=== PATIENT | female | born 1945 | race Caucasian/White ===

== ENCOUNTER → 2018-02-05 12:28 | Outpatient (CLI) | payer MEDICARE, SELFPAY ==
--- NOTE | 2018-02-05 12:30 | DI.MRI.S_ITS ---
PROCEDURE: MR LUMBAR SPINE WO CON INDICATIONS: low back pain TECHNIQUE: Noncontrast sagittal T1 spin echo and T2 fast echo, sagittal STIR, axial T1 and T2 fast spin echo through the lumbar spine. In cases with scoliosis, additional coronal T2 fast spin echo may be performed. COMPARISON: None. FINDINGS: Image quality: Excellent. Alignment and Curvature: There is mild L1-L2 retrolisthesis. Bone Marrow: Mild reactive endplate changes noted just at the L1-L2, L3-L4, L4-L5 and L5-S1 discs. Anterior wedging of the L1 vertebral body compatible with compression fracture. L1 marrow space signal is normal indicating compression fracture is chronic. L1 compression fracture results in approximately 50% loss of normal vertebral body height. No acute vertebral body compression fractures. Spinal Cord: Conus medullaris terminates at the L1 level. Visualized cord demonstrates normal signal and size. Paraspinous Soft Tissues: No paravertebral masses. L1-L2: Loss of disc signal and height. Mild, diffuse disc bulge. No central stenosis. Mild bilateral neural foraminal narrowing. No neural impingement. Focal high intensity zone noted in the posterior annulus compatible with a fissure. L2-L3: Loss of disc signal. Mild, diffuse disc bulge. Mild narrowing of the central canal. Mild bilateral neural foraminal narrowing. No neural impingement. L3-L4: Loss of disc signal and height. Mild, diffuse disc bulge. Mild to moderate narrowing of the central canal. Moderate bilateral neural foraminal narrowing. No neural impingement. Focal high intensity zones noted in the annulus compatible with fissures. L4-L5: Loss of disc signal and height. Moderate, diffuse disc bulge. Mild bilateral facet hypertrophy. Mild to moderate narrowing of the central canal. Moderate to severe right and mild left neural foraminal narrowing with slight flattening deformity exiting right L4 nerve root. L5-S1: Loss of disc signal and slight loss of disc height. Minimal, diffuse disc bulge. Moderate right and mild left facet hypertrophy. No central stenosis. Severe right and mild left neural foraminal narrowing with slight flattening deformity exiting right L5 nerve root. Focal high intensity zones noted in the annulus compatible with fissures. IMPRESSION: 1. Chronic L1 compression fracture. 2. Multilevel degenerative disc disease. 3. Multilevel facet arthropathy. 4. Mild to moderate L3-L4 and L4-L5 central canal narrowing. Mild L2-L3 central canal narrowing. 5. Severe right and mild left L5-S1 neural foraminal narrowing. Moderate to severe right and mild left L4-L5 neural foraminal narrowing. Moderate bilateral L4 neural foraminal narrowing. Mild bilateral L1-L2 and L2-L3 neural foraminal narrowing. Dictated by: Dayanna Gallego MD, PhD on 02/05/2018 at 15:29 Approved by: Dayanna Gallego MD, PhD on 02/05/2018 at 15:36
== END ==
PROVIDERS: PCP Physician Assistant Medical; Visit Provider Physical Medicine & Rehabilitation
DX: M48.56XA Collapsed vertebra, not elsewhere classified, lumbar region, initial encounter for fracture (principal); M51.36 Other intervertebral disc degeneration, lumbar region; M54.5 Low back pain; M51.37 Other intervertebral disc degeneration, lumbosacral region; M47.816 Spondylosis without myelopathy or radiculopathy, lumbar region; M47.817 Spondylosis without myelopathy or radiculopathy, lumbosacral region; M48.061 Spinal stenosis, lumbar region without neurogenic claudication; M48.07 Spinal stenosis, lumbosacral region
CPT/HCPCS: 72148

== ENCOUNTER 2018-10-23 14:15 | Emergency (ER) | payer MEDICARE, SELFPAY ==
[2018-10-23 14:13] VITALS: BP 121/65; PULSE 71; RESP 18; TEMP 36.5; O2SAT 93
--- NOTE | 2018-10-23 14:21 | DI.RAD.S_ITS ---
PROCEDURE: XR CHEST 1V INDICATIONS: chest pain TECHNIQUE: One view of the chest was acquired. COMPARISON: None. FINDINGS: Surgical changes and devices: None. Lungs and pleura: Lungs are clear. No pleural effusions or pneumothorax. Mediastinum: Mediastinal contours appear normal. Heart size is normal. Bones and chest wall: No suspicious bony lesions. Overlying soft tissues appear unremarkable. IMPRESSION: No acute cardiopulmonary disease process. Dictated by: Dayanna Gallego MD, PhD on 10/23/2018 at 14:35 Approved by: Dayanna Gallego MD, PhD on 10/23/2018 at 14:36
[2018-10-23 14:46] LABS: Add Manual Diff / Slide Review NO; Basophils Absolute Auto 100 /uL (0-100); Basophils Percent Auto 0.5 % (0-2); Eosinophils Absolute Auto 100 /uL (0-450); Eosinophils Percent Auto 0.6 % (2-4); Hematocrit 38.2 % (36-46); Hemoglobin 12.7 g/dL (12.0-16.0); Lymphocytes Absolute Auto 2000 /uL (1100-4500); Lymphocytes Percent Auto 15.4 % (25-40); Mean Corpuscular HGB Conc 33.2 % (30-36); Mean Corpuscular Hemoglobin 31.5 PG (26-34); Monocytes Absolute Auto 1000 /uL (0-900); Monocytes Percent Auto 7.9 % (3-14); Neutrophils Absolute Auto 9700 /uL (1500-7000); Neutrophils Percent Auto 75.6 % (50-75); Platelet Count 226 X10^3/uL (150-400); Red Blood Cell Count 4.02 X10^6/uL (4.0-5.2); White Blood Cell Count 12.9 X10^3/uL (4.5-11.0)
--- NOTE | 2018-10-23 14:46 | DI.CT.S_ITS ---
PROCEDURE: CT HEAD/BRAIN WO CON INDICATIONS: confused, generalized weakness. found sleeping on sidewalk. TECHNIQUE: Noncontrast 4.5 mm thick angled axial sections acquired from the foramen magnum to the vertex, with coronal and sagittal reformats. For radiation dose reduction, the following was used: automated exposure control, adjustment of mA and/or kV according to patient size. COMPARISON: None. FINDINGS: Image quality: Excellent. CSF spaces: Basal cisterns are patent. No extra-axial fluid collections. The ventricles are symmetric in size and shape. Brain: No intracranial bleeds or masses. There is cerebral volume loss for age, with resultant ventricular and sulcal prominence. There are periventricular and deep white matter chronic small vessel ischemic changes. There is intracranial internal carotid artery atherosclerosis. Skull and face: Calvarium and visualized facial bones appear intact, without suspicious lesions. Sinuses: Visualized sinuses and mastoids are clear. IMPRESSION: 1. No acute intracranial abnormalities. 2. Cerebral volume loss and chronic microvascular ischemic changes. Dictated by: Enma Balbuena M.D. on 10/23/2018 at 15:24 Approved by: Enma Balbuena M.D. on 10/23/2018 at 15:26
--- NOTE | 2018-10-23 14:55 | PC.NURSE ---
No focal weakness. NIH 0. FAST negative Falls asleep easily but awakens to general stimulation.
[2018-10-23 14:56] VITALS: BP 116/74; PULSE 70; RESP 18
[2018-10-23 14:56] LABS: Prothrombin Time 11.3 SECONDS (10.1-12.7)
[2018-10-23 14:58] LABS: PTT Partial Thromboplastin Tim 27 SECONDS (26.4-36.2)
[2018-10-23 15:00] LABS: Alanine Aminotransferase 16 IU/L (9-52); Albumin 3.9 g/dL (3.5-5.0); Albumin Globulin Ratio 1.3 (1.0-2.8); Alkaline Phosphatase 75 U/L (38-126); Aspartate Aminotransferase 20 IU/L (14-36); Bilirubin Total 0.9 mg/dL (0.2-1.3); Blood Urea Nitrogen 29 mg/dL (7-17); Carbon Dioxide 24 mmol/L (22-32); Chloride 114 mmol/L (98-107); Creatine Kinase 152 U/L (30-135); Estimated Glomerular Filt Rate 54.7 mL/min (>60); Globulin 3.1 g/dL (1.7-4.1); Glucose 82 mg/dL (80-110); HEMOLYSIS < 15 (0-50); Lipase 119 U/L (23-300); Sodium 144 mmol/L (137-145)
[2018-10-23 15:01] LABS: Ethanol (ETOH) < 10 mg/dL
[2018-10-23] MEDS: SODIUM CHLORIDE 0.9% 1,000 ML 250 ML IV (15:02)
[2018-10-23 15:11] LABS: Troponin I < 0.012 ng/mL (0.01-0.034)
[2018-10-23 15:15] LABS: Creatine Kinase MB 1.59 ng/mL (<2.37)
[2018-10-23 16:33] VITALS: BP 108/67; PULSE 81; RESP 20; O2SAT 91
--- NOTE | 2018-10-23 17:11 | ED.WEAKNESS ---
HPI - Weakness General Chief complaint: Weakness Stated complaint: Weakness, confusion Time Seen by Provider: 10/23/18 15:02 Source: patient Mode of arrival: ambulatory Limitations: no limitations History of Present Illness HPI Narrative: Patient comes emergency department complaining of sleepiness. She denies any other symptoms along with this. No chest pain shortness breath. No abdominal pain, nausea, vomiting, or diarrhea. No dysuria or back pain. No cough or fever. No head injury. Patient states that she was off her medications for about a week and then restarted them a few days ago. Patient takes Flexeril, gabapentin, and lorazepam, all which she states she took last night. Patient states she may have taken more than she should have accidentally, but she is not sure. Patient states that other than feeling sleepy, she feels perfectly fine. Related Data Home Medications Medication Instructions Recorded Confirmed aspirin 81 mg PO DAILY 10/23/18 10/23/18 atorvastatin 10 mg PO BEDTIME 10/23/18 10/23/18 cholecalciferol (vitamin D3) 1,000 unit PO DAILY 10/23/18 10/23/18 [Vitamin D3] cyclobenzaprine 10 mg PO TID PRN 10/23/18 10/23/18 duloxetine 120 mg PO DAILY 10/23/18 10/23/18 gabapentin 800 mg PO BEDTIME 10/23/18 10/23/18 levothyroxine 88 mcg PO DAILY 10/23/18 10/23/18 magnesium 250 mg PO DAILY 10/23/18 10/23/18 prazosin [Minipress] 3 mg PO BEDTIME 10/23/18 10/23/18 ranitidine HCl 300 mg PO DAILY PRN 10/23/18 10/23/18 Previous Rx's Medication Instructions Recorded gabapentin 100 mg capsule 100 mg PO TID PRN #90 cap 12/20/17 lamotrigine 100 mg tablet 100 mg PO DAILY #90 tab 09/17/18 eszopiclone 3 mg tablet 3 mg PO BEDTIME #30 tab 09/28/18 lorazepam 1 mg tablet 1 mg PO BIDP PRN #60 tab 09/28/18 Allergies Allergy/AdvReac Type Severity Reaction Status Date / Time haloperidol [From HALDOL] Allergy Unknown Verified 04/05/18 14:52 penicillin V [From BEEPEN VK] Allergy Unknown Verified 04/05/18 14:52 Sulfa (Sulfonamide Allergy Unknown Verified 04/05/18 14:52 Antibiotics) [SULFA (SULFONAMIDE ANTIBIOTICS)] diphenhydramine AdvReac Unknown Verified 04/05/18 14:52 [From BENADRYL] Review of Systems Constitutional Denies chills, Denies fever(s), Denies lethargy and Denies weakness Eyes Denies change in vision, Denies eye discharge, Denies irritation and Denies loss of vision ENT Ears, Nose, Mouth, and Throat: Denies change in voice, Denies neck pain and Denies sore throat Cardiovascular Denies chest pain, Denies irregular heart rhythm, Denies lightheadedness, Denies palpitations, Denies dyspnea, Denies dyspnea on exertion and Denies orthopnea Respiratory Denies cough, Denies dyspnea, Denies dyspnea on exertion and Denies wheezing Gastrointestinal Gastrointestinal: Denies abdominal pain, Denies change in bowel habits, Denies diarrhea, Denies nausea and Denies vomiting Genitourinary Denies hematuria, Denies flank pain, Denies urinary incontinence and Denies urinary urgency Musculoskeletal Denies neck pain Integumentary/Breasts Denies pruritus, Denies erythema, Denies rash and Denies wounds Neurologic Denies confusion, Denies loss of vision and Denies weakness Comments: Drowsiness Psychiatric Denies anxiety, Denies confusion, Denies depression, Denies homicidal ideation and Denies suicidal ideation Endocrine Denies palpitations Hematologic/Lymphatic Denies easy bruising Allergic/Immunologic Denies wheezing FOR[facility]LY [facility] Medical History DDD (degenerative disc disease), lumbar (Chronic) Herniated nucleus pulposus, L3-4 (Chronic) Major depressive disorder, recurrent episode, in partial remission with mood-congruent psychotic features (Acute) Alcohol use disorder, severe, in sustained remission (Acute) H/O alcohol abuse (Acute) History of cocaine abuse (Acute) Chronic post-traumatic stress disorder (PTSD) (Acute) Surgical History No pertinent past surgical history (Acute) Social History Smoking Status: Current every day smoker Social History Smoking Status: Current every day smoker Exam Initial Vital Signs Initial Vital Signs: Vital Signs Temperature 97.7 F 10/23/18 14:13 Pulse Rate 71 10/23/18 14:13 Respiratory Rate 18 10/23/18 14:13 Blood Pressure 121/65 10/23/18 14:13 Pulse Oximetry 93 10/23/18 14:13 Const General: cooperative and well developed Nutritional Appearance: well nourished Orientation: alert, awake, oriented x3 and not confused Other: The patient is sleeping when I enter the room, but easily arousable, and alert when aroused. HENMI Head: normocephalic and atraumatic Ears: external ears normal and TM's normal bilaterally Nose: external nose normal and No nasal discharge Face and sinus: sinuses nontender, face symmetric, no sinus tenderness and No dry mucous membranes Mouth: oral mucosae normal and moist mucous membranes Teeth and gingiva: dentition normal Throat: tonsils normal and uvula midline Eyes General: appearance normal, both eyes and all related structures Eyelids: eyelids normal Conjunctivae: conjunctivae normal Sclera: sclerae normal Pupils: PERRL EOM: EOM intact bilaterally Neck Neck: normal visual inspection, trachea midline, No lymphadenopathy, No midline deformity and No JVD Lymphatic: No lymphedema Chest Chest: normal inspection of the chest Resp Effort & Inspection: normal respiratory effort, able to speak in complete sentences, no respiratory distress and no use of accessory muscles Auscultation: clear to auscultation bilaterally, no rales, no rhonchi and no wheezes Cardio Rate: regular rate Rhythm: regular rhythm Heart Sounds: no click, no gallops, no murmurs and no rubs Pulses: normal peripheral pulses GI Inspection: non-distended Palpation: soft, no hepatosplenomegaly, No guarding, No pulsatile mass and No tender Auscultation: normal bowel sounds Back/Spine/Pelvis Back: No CVA tenderness Cervical Spine: cervical ROM normal and No pain with cervical ROM Thoracic/Lumbar Spine: thoracic and lumbar spine normal to inspection Skin General: no rashes or lesions noted, No jaundice and No petechiae Neuro General: alert (When aroused), awake (When aroused), oriented x3, gait normal, no focal motor deficits and CN's II-XI intact bilaterally Speech: speech normal Gait: normal gait (Patient ambulates on her own on a narrow based gait without difficulty.) Extrem General: full ROM, no clubbing, cyanosis or edema, no pedal edema and no calf tenderness Psych Appearance: well kempt Mental Status: mental status grossly normal Attitude: cooperative Thought Content: normal and suicidality Judgment: judgment good Course Course Narrative: Patient looked good overall. She was worked up with labs, which were unremarkable. I felt the patient was most likely drowsy, because she had taken her Flexeril, Ativan, and gabapentin illness same time. I discussed with the patient that she will need to ease back onto these medications, or talk to her primary care physician about dosing. The patient is completely lucid and coherent when aroused, and I have advised her at this point that she should go home and sleep off the drowsiness. Her sats are good here, and her exam is unremarkable. We have discussed the usual indications for return. Orders Ordered: Discontinued Medications Sodium Chloride (Normal Saline 0.9%) 1,000 mls @ 1,000 mls/hr IV BOLUS ONE Stop: 10/23/18 15:25 Last Infusion: 10/23/18 17:57 Dose: 0 mls/hr Admin: 10/23/18 15:02 Dose: 250 mls/hr Vital Signs - 8 hr 10/23/18 14:13 10/23/18 14:56 10/23/18 16:33 Temperature 97.7 F Pulse Rate 71 70 81 Respiratory Rate 18 18 20 Blood Pressure 121/65 Blood Pressure [Left Arm] 116/74 108/67 Pulse Oximetry 93 91 MDM - Weakness Medical Records Attestation: I reviewed the patient's medical records. Lab Data Attestation: I reviewed the patient's lab results. Result diagrams: 10/23/18 14:35 10/23/18 14:35 Lab Results 10/23/18 10/23/18 10/23/18 Range/Units 14:35 14:35 14:35 WBC 12.9 H (4.5-11.0) X10^3/uL RBC 4.02 (4.0-5.2) X10^6/uL Hgb 12.7 (12.0-16.0) g/dL Hct 38.2 (36-46) % MCV 95.0 (80-100) fL MCH 31.5 (26-34) PG MCHC 33.2 (30-36) % RDW 13.0 (11.6-14.8) % Plt Count 226 (150-400) X10^3/uL Neut % (Auto) 75.6 H (50-75) % Lymph % (Auto) 15.4 L (25-40) % [place] % (Auto) 7.9 (3-14) % Eos % (Auto) 0.6 L (2-4) % Baso % (Auto) 0.5 (0-2) % Neut # (Auto) 9700 H (0786-5977) /uL Lymph # (Auto) 2000 (4897-7239) /uL [place] # (Auto) 1000 H (0-900) /uL Eos # (Auto) 100 (0-450) /uL Baso # (Auto) 100 (0-100) /uL PT 11.3 (10.1-12.7) SECONDS INR 1.0 (0.9-1.3) APTT 27 (26.4-36.2) SECONDS Sodium 144 (137-145) mmol/L Potassium 4.0 (3.4-5.1) mmol/L Chloride 114 H (98-107) mmol/L Carbon Dioxide 24 (22-32) mmol/L BUN 29 H (7-17) mg/dL Creatinine 1.00 (0.52-1.04) mg/dL Estimated GFR 54.7 L (>60) mL/min BUN/Creatinine Ratio 29.0 H (6-22) Glucose 82 (80-110) mg/dL Calcium 9.0 (8.4-10.2) mg/dL Total Bilirubin 0.9 (0.2-1.3) mg/dL AST 20 (14-36) IU/L ALT 16 (9-52) IU/L Alkaline Phosphatase 75 (38-126) U/L Total Creatine Kinase 152 H (30-135) U/L CK-MB (CK-2) 1.59 (<2.37) ng/mL CK-MB (CK-2) Rel Index 1.0 L (1.5-5.0) % Troponin I < 0.012 (0.01-0.034) ng/mL Total Protein 7.0 (6.3-8.2) g/dL Albumin 3.9 (3.5-5.0) g/dL Globulin 3.1 (1.7-4.1) g/dL Albumin/Globulin Ratio 1.3 (1.0-2.8) Lipase 119 (23-300) U/L Urine RBC (0-5/HPF) Urine WBC (0-5/HPF) Ur Squamous Epith Cells (0-5/HPF) Urine Bacteria (None) Hyaline Casts (None) Urine Mucus (Negative) Ur Culture Indicated? Urine Opiates Screen (Negative) Ur Oxycodone Screen (Negative) Urine Methadone Screen (Negative) Ur Barbiturates Screen (Negative) Lamotrigine (4.0-18.0) mcg/mL U Tricyclic Antidepress (Negative) Ur Phencyclidine Scrn (Negative) Ur Amphetamines Screen (Negative) U Methamphetamines Scrn (Negative) Ur MDMA Scrn (Ecstasy) (Negative) U Benzodiazepines Scrn (Negative) Urine Cocaine Screen (Negative) U Marijuana (THC) Screen (Negative) Ethyl Alcohol mg/dL 10/23/18 10/23/18 10/23/18 Range/Units 14:35 14:35 17:35 WBC (4.5-11.0) X10^3/uL RBC (4.0-5.2) X10^6/uL Hgb (12.0-16.0) g/dL Hct (36-46) % MCV (80-100) fL MCH (26-34) PG MCHC (30-36) % RDW (11.6-14.8) % Plt Count (150-400) X10^3/uL Neut % (Auto) (50-75) % Lymph % (Auto) (25-40) % [place] % (Auto) (3-14) % Eos % (Auto) (2-4) % Baso % (Auto) (0-2) % Neut # (Auto) (6680-6865) /uL Lymph # (Auto) (3756-6133) /uL [place] # (Auto) (0-900) /uL Eos # (Auto) (0-450) /uL Baso # (Auto) (0-100) /uL PT (10.1-12.7) SECONDS INR (0.9-1.3) APTT (26.4-36.2) SECONDS Sodium (137-145) mmol/L Potassium (3.4-5.1) mmol/L Chloride (98-107) mmol/L Carbon Dioxide (22-32) mmol/L BUN (7-17) mg/dL Creatinine (0.52-1.04) mg/dL Estimated GFR (>60) mL/min BUN/Creatinine Ratio (6-22) Glucose (80-110) mg/dL Calcium (8.4-10.2) mg/dL Total Bilirubin (0.2-1.3) mg/dL AST (14-36) IU/L ALT (9-52) IU/L Alkaline Phosphatase (38-126) U/L Total Creatine Kinase (30-135) U/L CK-MB (CK-2) (<2.37) ng/mL CK-MB (CK-2) Rel Index (1.5-5.0) % Troponin I (0.01-0.034) ng/mL Total Protein (6.3-8.2) g/dL Albumin (3.5-5.0) g/dL Globulin (1.7-4.1) g/dL Albumin/Globulin Ratio (1.0-2.8) Lipase (23-300) U/L Urine RBC (0-5/HPF) Urine WBC (0-5/HPF) Ur Squamous Epith Cells (0-5/HPF) Urine Bacteria (None) Hyaline Casts (None) Urine Mucus (Negative) Ur Culture Indicated? Urine Opiates Screen Negative (Negative) Ur Oxycodone Screen Negative (Negative) Urine Methadone Screen Negative (Negative) Ur Barbiturates Screen Negative (Negative) Lamotrigine 1.2 L (4.0-18.0) mcg/mL U Tricyclic Antidepress Positive H (Negative) Ur Phencyclidine Scrn Negative (Negative) Ur Amphetamines Screen Negative (Negative) U Methamphetamines Scrn Positive H (Negative) Ur MDMA Scrn (Ecstasy) Negative (Negative) U Benzodiazepines Scrn Positive H (Negative) Urine Cocaine Screen Negative (Negative) U Marijuana (THC) Screen Negative (Negative) Ethyl Alcohol < 10 mg/dL 10/23/18 Range/Units 17:36 WBC (4.5-11.0) X10^3/uL RBC (4.0-5.2) X10^6/uL Hgb (12.0-16.0) g/dL Hct (36-46) % MCV (80-100) fL MCH (26-34) PG MCHC (30-36) % RDW (11.6-14.8) % Plt Count (150-400) X10^3/uL Neut % (Auto) (50-75) % Lymph % (Auto) (25-40) % [place] % (Auto) (3-14) % Eos % (Auto) (2-4) % Baso % (Auto) (0-2) % Neut # (Auto) (8426-3778) /uL Lymph # (Auto) (3991-3002) /uL [place] # (Auto) (0-900) /uL Eos # (Auto) (0-450) /uL Baso # (Auto) (0-100) /uL PT (10.1-12.7) SECONDS INR (0.9-1.3) APTT (26.4-36.2) SECONDS Sodium (137-145) mmol/L Potassium (3.4-5.1) mmol/L Chloride (98-107) mmol/L Carbon Dioxide (22-32) mmol/L BUN (7-17) mg/dL Creatinine (0.52-1.04) mg/dL Estimated GFR (>60) mL/min BUN/Creatinine Ratio (6-22) Glucose (80-110) mg/dL Calcium (8.4-10.2) mg/dL Total Bilirubin (0.2-1.3) mg/dL AST (14-36) IU/L ALT (9-52) IU/L Alkaline Phosphatase (38-126) U/L Total Creatine Kinase (30-135) U/L CK-MB (CK-2) (<2.37) ng/mL CK-MB (CK-2) Rel Index (1.5-5.0) % Troponin I (0.01-0.034) ng/mL Total Protein (6.3-8.2) g/dL Albumin (3.5-5.0) g/dL Globulin (1.7-4.1) g/dL Albumin/Globulin Ratio (1.0-2.8) Lipase (23-300) U/L Urine RBC None seen (0-5/HPF) Urine WBC 0-1/hpf (0-5/HPF) Ur Squamous Epith Cells 0-1 /hpf (0-5/HPF) Urine Bacteria None seen (None) Hyaline Casts 1-5/lpf (None) Urine Mucus 1+ H (Negative) Ur Culture Indicated? Cult not indicated Urine Opiates Screen (Negative) Ur Oxycodone Screen (Negative) Urine Methadone Screen (Negative) Ur Barbiturates Screen (Negative) Lamotrigine (4.0-18.0) mcg/mL U Tricyclic Antidepress (Negative) Ur Phencyclidine Scrn (Negative) Ur Amphetamines Screen (Negative) U Methamphetamines Scrn (Negative) Ur MDMA Scrn (Ecstasy) (Negative) U Benzodiazepines Scrn (Negative) Urine Cocaine Screen (Negative) U Marijuana (THC) Screen (Negative) Ethyl Alcohol mg/dL Urine Dip Bedside Urine Glucose Negative Bedside Urine Bilirubin - Negative Bedside Urine Ketone - Negative Urine Specific [place] 1.025 Bedside Urine Occult Blood +/- Bedside Urine pH 6.0 Bedside Urine Protein +/- 15 Bedside Urine Urobilinogen - Negative Bedside Urine Nitrite - Negative Bedside Urine Leukocytes - Negative Esterase Discharge Plan Departure Patient Disposition: Home Clinical Impression: Drowsiness Adverse effects of medication Qualifiers: Encounter type: initial encounter Qualified Code(s): T50.905A - Adverse effect of unspecified drugs, medicaments and biological substances, initial encounter Discharge Date/Time: 10/23/18 18:26 Interventions: ED Discharge Assessment Last Done: 10/23/18 18:25 Instructions: Dos and Don'ts for Prescription Medications, DI for Safely Taking and Storing Medications -- Adults Activity Restrictions/Additional Instructions: Your labs all looked great. There is no evidence of a serious or emergent condition causing your symptoms. If your liked her medications continue to make you drowsy, please follow up with your primary doctor to discuss whether these are still inappropriate combination for you to take. Prescriptions: No Action eszopiclone [Lunesta] 3 mg tablet 3 mg PO BEDTIME Qty: 30 RF: 1 lorazepam [Ativan] 1 mg tablet 1 mg PO BIDP PRN (Reason: anxiety) Qty: 60 RF: 2 gabapentin 100 mg capsule 100 mg PO TID PRN (Reason: sleep) Qty: 90 RF: 2 lamotrigine 100 mg tablet 100 mg PO DAILY Qty: 90 RF: 1 cyclobenzaprine 10 mg Tablet 10 mg PO TID PRN (Reason: Muscle Spasm) RF: 0 atorvastatin 10 mg Tablet 10 mg PO BEDTIME RF: 0 ranitidine HCl 300 mg Tablet 300 mg PO DAILY PRN (Reason: Indigestion) RF: 0 aspirin 81 mg Tablet,Delayed Release (Dr/Ec) 81 mg PO DAILY RF: 0 levothyroxine 88 mcg Tablet 88 mcg PO DAILY RF: 0 magnesium 250 mg Tablet 250 mg PO DAILY RF: 0 cholecalciferol (vitamin D3) [Vitamin D3] 1,000 unit Capsule 1,000 unit PO DAILY RF: 0 prazosin [Minipress] 1 mg capsule 3 mg PO BEDTIME RF: 0 gabapentin 400 mg capsule 800 mg PO BEDTIME RF: 0 duloxetine 60 mg capsule,delayed release(DR/EC) 120 mg PO DAILY RF: 0 Referrals: Carolina Hunter PA-C [Primary Care Provider] -
--- NOTE | 2018-10-23 17:16 | ED_ITS ---
HPI - Weakness General Chief complaint: Weakness Stated complaint: Weakness, confusion Time Seen by Provider: 10/23/18 15:02 Source: patient Mode of arrival: ambulatory Limitations: no limitations History of Present Illness HPI Narrative: Patient comes emergency department complaining of sleepiness. She denies any other symptoms along with this. No chest pain shortness breath. No abdominal pain, nausea, vomiting, or diarrhea. No dysuria or back pain. No cough or fever. No head injury. Patient states that she was off her medications for about a week and then restarted them a few days ago. Patient takes Flexeril, gabapentin, and lorazepam, all which she states she took last night. Patient states she may have taken more than she should have accidentally, but she is not sure. Patient states that other than feeling sleepy, she feels perfectly fine. Related Data Home Medications Medication Instructions Recorded Confirmed aspirin 81 mg PO DAILY 10/23/18 10/23/18 atorvastatin 10 mg PO BEDTIME 10/23/18 10/23/18 cholecalciferol (vitamin D3) 1,000 unit PO DAILY 10/23/18 10/23/18 [Vitamin D3] cyclobenzaprine 10 mg PO TID PRN 10/23/18 10/23/18 duloxetine 120 mg PO DAILY 10/23/18 10/23/18 gabapentin 800 mg PO BEDTIME 10/23/18 10/23/18 levothyroxine 88 mcg PO DAILY 10/23/18 10/23/18 magnesium 250 mg PO DAILY 10/23/18 10/23/18 prazosin [Minipress] 3 mg PO BEDTIME 10/23/18 10/23/18 ranitidine HCl 300 mg PO DAILY PRN 10/23/18 10/23/18 Previous Rx's Medication Instructions Recorded gabapentin 100 mg capsule 100 mg PO TID PRN #90 cap 12/20/17 lamotrigine 100 mg tablet 100 mg PO DAILY #90 tab 09/17/18 eszopiclone 3 mg tablet 3 mg PO BEDTIME #30 tab 09/28/18 lorazepam 1 mg tablet 1 mg PO BIDP PRN #60 tab 09/28/18 Allergies Allergy/AdvReac Type Severity Reaction Status Date / Time haloperidol [From HALDOL] Allergy Unknown Verified 04/05/18 14:52 penicillin V [From BEEPEN VK] Allergy Unknown Verified 04/05/18 14:52 Sulfa (Sulfonamide Allergy Unknown Verified 04/05/18 14:52 Antibiotics) [SULFA (SULFONAMIDE ANTIBIOTICS)] diphenhydramine AdvReac Unknown Verified 04/05/18 14:52 [From BENADRYL] Review of Systems Constitutional Denies chills, Denies fever(s), Denies lethargy and Denies weakness Eyes Denies change in vision, Denies eye discharge, Denies irritation and Denies loss of vision ENT Ears, Nose, Mouth, and Throat: Denies change in voice, Denies neck pain and Denies sore throat Cardiovascular Denies chest pain, Denies irregular heart rhythm, Denies lightheadedness, Denies palpitations, Denies dyspnea, Denies dyspnea on exertion and Denies orthopnea Respiratory Denies cough, Denies dyspnea, Denies dyspnea on exertion and Denies wheezing Gastrointestinal Gastrointestinal: Denies abdominal pain, Denies change in bowel habits, Denies diarrhea, Denies nausea and Denies vomiting Genitourinary Denies hematuria, Denies flank pain, Denies urinary incontinence and Denies urinary urgency Musculoskeletal Denies neck pain Integumentary/Breasts Denies pruritus, Denies erythema, Denies rash and Denies wounds Neurologic Denies confusion, Denies loss of vision and Denies weakness Comments: Drowsiness Psychiatric Denies anxiety, Denies confusion, Denies depression, Denies homicidal ideation and Denies suicidal ideation Endocrine Denies palpitations Hematologic/Lymphatic Denies easy bruising Allergic/Immunologic Denies wheezing FORMERLY [facility] Medical History DDD (degenerative disc disease), lumbar (Chronic) Herniated nucleus pulposus, L3-4 (Chronic) Major depressive disorder, recurrent episode, 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 (Acute) Alcohol use disorder, severe, in sustained remission (Acute) H/O alcohol abuse (Acute) History of cocaine abuse (Acute) Chronic post-traumatic stress disorder (PTSD) (Acute) Surgical History No pertinent past surgical history (Acute) Social History Smoking Status: Current every day smoker Social History Smoking Status: Current every day smoker Exam Initial Vital Signs Initial Vital Signs: Vital Signs Temperature 97.7 F 10/23/18 14:13 Pulse Rate 71 10/23/18 14:13 Respiratory Rate 18 10/23/18 14:13 Blood Pressure 121/65 10/23/18 14:13 Pulse Oximetry 93 10/23/18 14:13 Const General: cooperative and well developed Nutritional Appearance: well nourished Orientation: alert, awake, oriented x3 and not confused Other: The patient is sleeping when I enter the room, but easily arousable, and alert when aroused. HENMS Head: normocephalic and atraumatic Ears: external ears normal and TM's normal bilaterally Nose: external nose normal and No nasal discharge Face and sinus: sinuses nontender, face symmetric, no sinus tenderness and No dry mucous membranes Mouth: oral mucosae normal and moist mucous membranes Teeth and gingiva: dentition normal Throat: tonsils normal and uvula midline Eyes General: appearance normal, both eyes and all related structures Eyelids: eyelids normal Conjunctivae: conjunctivae normal Sclera: sclerae normal Pupils: PERRL EOM: EOM intact bilaterally Neck Neck: normal visual inspection, trachea midline, No lymphadenopathy, No midline deformity and No JVD Lymphatic: No lymphedema Chest Chest: normal inspection of the chest Resp Effort & Inspection: normal respiratory effort, able to speak in complete sentences, no respiratory distress and no use of accessory muscles Auscultation: clear to auscultation bilaterally, no rales, no rhonchi and no wheezes Cardio Rate: regular rate Rhythm: regular rhythm Heart Sounds: no click, no gallops, no murmurs and no rubs Pulses: normal peripheral pulses GI Inspection: non-distended Palpation: soft, no hepatosplenomegaly, No guarding, No pulsatile mass and No tender Auscultation: normal bowel sounds Back/Spine/Pelvis Back: No CVA tenderness Cervical Spine: cervical ROM normal and No pain with cervical ROM Thoracic/Lumbar Spine: thoracic and lumbar spine normal to inspection Skin General: no rashes or lesions noted, No jaundice and No petechiae Neuro General: alert (When aroused), awake (When aroused), oriented x3, gait normal, no focal motor deficits and CN's II-XI intact bilaterally Speech: speech normal Gait: normal gait (Patient ambulates on her own on a narrow based gait without difficulty.) Extrem General: full ROM, no clubbing, cyanosis or edema, no pedal edema and no calf tenderness Psych Appearance: well kempt Mental Status: mental status grossly normal Attitude: cooperative Thought Content: normal and suicidality Judgment: judgment good Course Course Narrative: Patient looked good overall. She was worked up with labs, which were unremarkable. I felt the patient was most likely drowsy, because she had taken her Flexeril, Ativan, and gabapentin illness same time. I discussed with the patient that she will need to ease back onto these medications, or talk to her primary care physician about dosing. The patient is completely lucid and coherent when aroused, and I have advised her at this point that she should go home and sleep off the drowsiness. Her sats are good here, and her exam is unremarkable. We have discussed the usual indications for return. Orders Ordered: Discontinued Medications Sodium Chloride (Normal Saline 0.9%) 1,000 mls @ 1,000 mls/hr IV BOLUS ONE Stop: 10/23/18 15:25 Last Infusion: 10/23/18 17:57 Dose: 0 mls/hr Admin: 10/23/18 15:02 Dose: 250 mls/hr Vital Signs - 8 hr 10/23/18 14:13 10/23/18 14:56 10/23/18 16:33 Temperature 97.7 F Pulse Rate 71 70 81 Respiratory Rate 18 18 20 Blood Pressure 121/65 Blood Pressure [Left Arm] 116/74 108/67 Pulse Oximetry 93 91 MDM - Weakness Medical Records Attestation: I reviewed the patient's medical records. Lab Data Attestation: I reviewed the patient's lab results. Result diagrams: 10/23/18 14:35 10/23/18 14:35 Lab Results 10/23/18 10/23/18 10/23/18 Range/Units 14:35 14:35 14:35 WBC 12.9 H (4.5-11.0) X10^3/uL RBC 4.02 (4.0-5.2) X10^6/uL Hgb 12.7 (12.0-16.0) g/dL Hct 38.2 (36-46) % MCV 95.0 (80-100) fL MCH 31.5 (26-34) PG MCHC 33.2 (30-36) % RDW 13.0 (11.6-14.8) % Plt Count 226 (150-400) X10^3/uL Neut % (Auto) 75.6 H (50-75) % Lymph % (Auto) 15.4 L (25-40) % Kay % (Auto) 7.9 (3-14) % Eos % (Auto) 0.6 L (2-4) % Baso % (Auto) 0.5 (0-2) % Neut # (Auto) 9700 H (7584-5581) /uL Lymph # (Auto) 2000 (3879-7131) /uL Kay # (Auto) 1000 H (0-900) /uL Eos # (Auto) 100 (0-450) /uL Baso # (Auto) 100 (0-100) /uL PT 11.3 (10.1-12.7) SECONDS INR 1.0 (0.9-1.3) APTT 27 (26.4-36.2) SECONDS Sodium 144 (137-145) mmol/L Potassium 4.0 (3.4-5.1) mmol/L Chloride 114 H (98-107) mmol/L Carbon Dioxide 24 (22-32) mmol/L BUN 29 H (7-17) mg/dL Creatinine 1.00 (0.52-1.04) mg/dL Estimated GFR 54.7 L (>60) mL/min BUN/Creatinine Ratio 29.0 H (6-22) Glucose 82 (80-110) mg/dL Calcium 9.0 (8.4-10.2) mg/dL Total Bilirubin 0.9 (0.2-1.3) mg/dL AST 20 (14-36) IU/L ALT 16 (9-52) IU/L Alkaline Phosphatase 75 (38-126) U/L Total Creatine Kinase 152 H (30-135) U/L CK-MB (CK-2) 1.59 (<2.37) ng/mL CK-MB (CK-2) Rel Index 1.0 L (1.5-5.0) % Troponin I < 0.012 (0.01-0.034) ng/mL Total Protein 7.0 (6.3-8.2) g/dL Albumin 3.9 (3.5-5.0) g/dL Globulin 3.1 (1.7-4.1) g/dL Albumin/Globulin Ratio 1.3 (1.0-2.8) Lipase 119 (23-300) U/L Urine RBC (0-5/HPF) Urine WBC (0-5/HPF) Ur Squamous Epith Cells (0-5/HPF) Urine Bacteria (None) Hyaline Casts (None) Urine Mucus (Negative) Ur Culture Indicated? Urine Opiates Screen (Negative) Ur Oxycodone Screen (Negative) Urine Methadone Screen (Negative) Ur Barbiturates Screen (Negative) Lamotrigine (4.0-18.0) mcg/mL U Tricyclic Antidepress (Negative) Ur Phencyclidine Scrn (Negative) Ur Amphetamines Screen (Negative) U Methamphetamines Scrn (Negative) Ur MDMA Scrn (Ecstasy) (Negative) U Benzodiazepines Scrn (Negative) Urine Cocaine Screen (Negative) U Marijuana (THC) Screen (Negative) Ethyl Alcohol mg/dL 10/23/18 10/23/18 10/23/18 Range/Units 14:35 14:35 17:35 WBC (4.5-11.0) X10^3/uL RBC (4.0-5.2) X10^6/uL Hgb (12.0-16.0) g/dL Hct (36-46) % MCV (80-100) fL MCH (26-34) PG MCHC (30-36) % RDW (11.6-14.8) % Plt Count (150-400) X10^3/uL Neut % (Auto) (50-75) % Lymph % (Auto) (25-40) % Kay % (Auto) (3-14) % Eos % (Auto) (2-4) % Baso % (Auto) (0-2) % Neut # (Auto) (7406-4324) /uL Lymph # (Auto) (4401-1132) /uL Kay # (Auto) (0-900) /uL Eos # (Auto) (0-450) /uL Baso # (Auto) (0-100) /uL PT (10.1-12.7) SECONDS INR (0.9-1.3) APTT (26.4-36.2) SECONDS Sodium (137-145) mmol/L Potassium (3.4-5.1) mmol/L Chloride (98-107) mmol/L Carbon Dioxide (22-32) mmol/L BUN (7-17) mg/dL Creatinine (0.52-1.04) mg/dL Estimated GFR (>60) mL/min BUN/Creatinine Ratio (6-22) Glucose (80-110) mg/dL Calcium (8.4-10.2) mg/dL Total Bilirubin (0.2-1.3) mg/dL AST (14-36) IU/L ALT (9-52) IU/L Alkaline Phosphatase (38-126) U/L Total Creatine Kinase (30-135) U/L CK-MB (CK-2) (<2.37) ng/mL CK-MB (CK-2) Rel Index (1.5-5.0) % Troponin I (0.01-0.034) ng/mL Total Protein (6.3-8.2) g/dL Albumin (3.5-5.0) g/dL Globulin (1.7-4.1) g/dL Albumin/Globulin Ratio (1.0-2.8) Lipase (23-300) U/L Urine RBC (0-5/HPF) Urine WBC (0-5/HPF) Ur Squamous Epith Cells (0-5/HPF) Urine Bacteria (None) Hyaline Casts (None) Urine Mucus (Negative) Ur Culture Indicated? Urine Opiates Screen Negative (Negative) Ur Oxycodone Screen Negative (Negative) Urine Methadone Screen Negative (Negative) Ur Barbiturates Screen Negative (Negative) Lamotrigine 1.2 L (4.0-18.0) mcg/mL U Tricyclic Antidepress Positive H (Negative) Ur Phencyclidine Scrn Negative (Negative) Ur Amphetamines Screen Negative (Negative) U Methamphetamines Scrn Positive H (Negative) Ur MDMA Scrn (Ecstasy) Negative (Negative) U Benzodiazepines Scrn Positive H (Negative) Urine Cocaine Screen Negative (Negative) U Marijuana (THC) Screen Negative (Negative) Ethyl Alcohol < 10 mg/dL 10/23/18 Range/Units 17:36 WBC (4.5-11.0) X10^3/uL RBC (4.0-5.2) X10^6/uL Hgb (12.0-16.0) g/dL Hct (36-46) % MCV (80-100) fL MCH (26-34) PG MCHC (30-36) % RDW (11.6-14.8) % Plt Count (150-400) X10^3/uL Neut % (Auto) (50-75) % Lymph % (Auto) (25-40) % Kay % (Auto) (3-14) % Eos % (Auto) (2-4) % Baso % (Auto) (0-2) % Neut # (Auto) (2318-7663) /uL Lymph # (Auto) (1170-6204) /uL Kay # (Auto) (0-900) /uL Eos # (Auto) (0-450) /uL Baso # (Auto) (0-100) /uL PT (10.1-12.7) SECONDS INR (0.9-1.3) APTT (26.4-36.2) SECONDS Sodium (137-145) mmol/L Potassium (3.4-5.1) mmol/L Chloride (98-107) mmol/L Carbon Dioxide (22-32) mmol/L BUN (7-17) mg/dL Creatinine (0.52-1.04) mg/dL Estimated GFR (>60) mL/min BUN/Creatinine Ratio (6-22) Glucose (80-110) mg/dL Calcium (8.4-10.2) mg/dL Total Bilirubin (0.2-1.3) mg/dL AST (14-36) IU/L ALT (9-52) IU/L Alkaline Phosphatase (38-126) U/L Total Creatine Kinase (30-135) U/L CK-MB (CK-2) (<2.37) ng/mL CK-MB (CK-2) Rel Index (1.5-5.0) % Troponin I (0.01-0.034) ng/mL Total Protein (6.3-8.2) g/dL Albumin (3.5-5.0) g/dL Globulin (1.7-4.1) g/dL Albumin/Globulin Ratio (1.0-2.8) Lipase (23-300) U/L Urine RBC None seen (0-5/HPF) Urine WBC 0-1/hpf (0-5/HPF) Ur Squamous Epith Cells 0-1 /hpf (0-5/HPF) Urine Bacteria None seen (None) Hyaline Casts 1-5/lpf (None) Urine Mucus 1+ H (Negative) Ur Culture Indicated? Cult not indicated Urine Opiates Screen (Negative) Ur Oxycodone Screen (Negative) Urine Methadone Screen (Negative) Ur Barbiturates Screen (Negative) Lamotrigine (4.0-18.0) mcg/mL U Tricyclic Antidepress (Negative) Ur Phencyclidine Scrn (Negative) Ur Amphetamines Screen (Negative) U Methamphetamines Scrn (Negative) Ur MDMA Scrn (Ecstasy) (Negative) U Benzodiazepines Scrn (Negative) Urine Cocaine Screen (Negative) U Marijuana (THC) Screen (Negative) Ethyl Alcohol mg/dL Urine Dip Bedside Urine Glucose Negative Bedside Urine Bilirubin - Negative Bedside Urine Ketone - Negative Urine Specific [place] 1.025 Bedside Urine Occult Blood +/- Bedside Urine pH 6.0 Bedside Urine Protein +/- 15 Bedside Urine Urobilinogen - Negative Bedside Urine Nitrite - Negative Bedside Urine Leukocytes - Negative Esterase Discharge Plan Departure Patient Disposition: Home Clinical Impression: Drowsiness Adverse effects of medication Qualifiers: Encounter type: initial encounter Qualified Code(s): T50.905A - Adverse effect of unspecified drugs, medicaments and biological substances, initial encounter Discharge Date/Time: 10/23/18 18:26 Interventions: ED Discharge Assessment Last Done: 10/23/18 18:25 Instructions: Dos and Don'ts for Prescription Medications, DI for Safely Taking and Storing Medications -- Adults Activity Restrictions/Additional Instructions: Your labs all looked great. There is no evidence of a serious or emergent condition causing your symptoms. If your liked her medications continue to make you drowsy, please follow up with your primary doctor to discuss whether these are still inappropriate combination for you to take. Prescriptions: No Action eszopiclone [Lunesta] 3 mg tablet 3 mg PO BEDTIME Qty: 30 RF: 1 lorazepam [Ativan] 1 mg tablet 1 mg PO BIDP PRN (Reason: anxiety) Qty: 60 RF: 2 gabapentin 100 mg capsule 100 mg PO TID PRN (Reason: sleep) Qty: 90 RF: 2 lamotrigine 100 mg tablet 100 mg PO DAILY Qty: 90 RF: 1 cyclobenzaprine 10 mg Tablet 10 mg PO TID PRN (Reason: Muscle Spasm) RF: 0 atorvastatin 10 mg Tablet 10 mg PO BEDTIME RF: 0 ranitidine HCl 300 mg Tablet 300 mg PO DAILY PRN (Reason: Indigestion) RF: 0 aspirin 81 mg Tablet,Delayed Release (Dr/Ec) 81 mg PO DAILY RF: 0 levothyroxine 88 mcg Tablet 88 mcg PO DAILY RF: 0 magnesium 250 mg Tablet 250 mg PO DAILY RF: 0 cholecalciferol (vitamin D3) [Vitamin D3] 1,000 unit Capsule 1,000 unit PO DAILY RF: 0 prazosin [Minipress] 1 mg capsule 3 mg PO BEDTIME RF: 0 gabapentin 400 mg capsule 800 mg PO BEDTIME RF: 0 duloxetine 60 mg capsule,delayed release(DR/EC) 120 mg PO DAILY RF: 0 Referrals: Carolina Hunter PA-C [Primary Care Provider] -
[2018-10-23 17:48] LABS: Bacteria Urine None Seen; RBC Urine None Seen (0-5/HPF)
[2018-10-23 17:57] LABS: Urine Amphetamines Negative (Negative); Urine Barbiturates Negative (Negative); Urine Benzodiazepines Positive (Negative); Urine Cocaine Negative (Negative); Urine MDMA Negative (Negative); Urine Methadone Negative (Negative); Urine Methamphetamines Positive (Negative); Urine Morphine/Opi cutoff 2000 Negative (Negative); Urine Oxycodone Negative (Negative); Urine Phencyclidine Negative (Negative); Urine Tetrahydrocannabinol Negative (Negative); Urine Tricyclic Antidepressant Positive (Negative)
[2018-10-23 18:16] LABS: Squamous Epithelial Cell Urine 0-1 /HPF (0-5/HPF); WBC Urine 0-1/HPF (0-5/HPF)
[2018-10-23 18:17] LABS: Culture Indicated Urine Cult Not Indicated; Hyaline Casts Urine 1-5/LPF; Mucus Urine 1+ (Negative)
[2018-10-25 16:51] LABS: Lamotrigine Lamictal 1.2 mcg/mL (4.0-18.0)
== END 2018-10-23 18:26 | disposition home or self-care (01) ==
PROVIDERS: Emergency Provider Emergency Medicine; PCP Physician Assistant Medical
DX: R40.0 Somnolence (principal); T50.905A Adverse effect of unspecified drugs, medicaments and biological substances, initial encounter; R53.1 Weakness
CPT/HCPCS: 36591; 70450; 71045; 80053; 80175; 80305; 80320; 81003; 81015; 82550; 82553; 83690; 84484; 85025; 85610; 85730; 93005; 93010; 96360; 96361; 99284

== ENCOUNTER → 2020-12-09 14:39 | Outpatient (CLI) | payer OTHER, SELFPAY ==
[2020-12-09 16:15] LABS: Add Manual Diff / Slide Review NO; Basophils Absolute Auto 100 /uL (0-100); Basophils Percent Auto 0.7 % (0-2); Eosinophils Absolute Auto 100 /uL (0-450); Eosinophils Percent Auto 0.5 % (2-4); Hematocrit 37.3 % (36-46); Hemoglobin 12.4 g/dL (12.0-16.0); Lymphocytes Absolute Auto 1400 /uL (1100-4500); Lymphocytes Percent Auto 14.4 % (25-40); Mean Corpuscular HGB Conc 33.1 % (30-36); Mean Corpuscular Hemoglobin 31.6 PG (26-34); Mean Corpuscular Volume 95.5 fL (80-100); Monocytes Absolute Auto 600 /uL (0-900); Neutrophils Absolute Auto 7800 /uL (1500-7000); Neutrophils Percent Auto 78.4 % (50-75); Platelet Count 225 X10^3/uL (150-400); Red Blood Cell Count 3.91 X10^6/uL (4.0-5.2); Red Cell Distribution Width 13.4 % (11.6-14.8)
[2020-12-09 16:22] LABS: Hemoglobin A1C% w Est Avg Glu 5.1 % (4.0-6.0)
[2020-12-09 16:26] LABS: Blood Urea Nitrogen 32 mg/dL (7-17); Calcium 8.9 mg/dL (8.4-10.2); Carbon Dioxide 21 mmol/L (22-32); Chloride 115 mmol/L (98-107); Estimated Glomerular Filt Rate 54.2 mL/min (>60); Glucose 96 mg/dL (80-110); HEMOLYSIS < 15 (0-50); Potassium 4.1 mmol/L (3.4-5.1); Sodium 142 mmol/L (137-145)
== END ==
PROVIDERS: PCP Physician Assistant Medical; Referring Provider Orthopaedic Surgery; Visit Provider Orthopaedic Surgery
DX: Z01.818 Encounter for other preprocedural examination (principal); R73.9 Hyperglycemia, unspecified; Z01.812 Encounter for preprocedural laboratory examination
CPT/HCPCS: 36415; 80048; 83036; 85025; 93005

== ENCOUNTER → 2023-10-11 10:50 | Outpatient (CLI) | payer MEDICARE, SELFPAY ==
[2023-10-11 12:18] LABS: Add Manual Diff / Slide Review NO; Basophils Absolute Auto 0 /uL (0-100); Basophils Percent Auto 0.5 % (0-2); Eosinophils Absolute Auto 100 /uL (0-450); Eosinophils Percent Auto 1.3 % (2-4); Hematocrit 42.5 % (36-46); Hemoglobin 14.1 g/dL (12.0-16.0); Lymphocytes Absolute Auto 1500 /uL (1100-4500); Lymphocytes Percent Auto 19.4 % (25-40); Mean Corpuscular HGB Conc 33.1 % (30-36); Mean Corpuscular Hemoglobin 30.9 PG (26-34); Mean Corpuscular Volume 93.4 fL (80-100); Monocytes Absolute Auto 600 /uL (0-900); Monocytes Percent Auto 7.5 % (3-14); Neutrophils Absolute Auto 5600 /uL (1500-7000); Neutrophils Percent Auto 71.3 % (50-75); Platelet Count 276 X10^3/uL (150-400); Red Blood Cell Count 4.55 X10^6/uL (4.0-5.2); Red Cell Distribution Width 13.5 % (11.6-14.8); White Blood Cell Count 7.9 X10^3/uL (4.5-11.0)
[2023-10-11 12:46] LABS: Alanine Aminotransferase 20 IU/L (<35); Albumin 4.5 g/dL (3.5-5.0); Albumin Globulin Ratio 1.5 (1.0-2.8); Alkaline Phosphatase 120 U/L (38-126); Aspartate Aminotransferase 32 IU/L (14-36); BUN Creatinine Ratio 21.1 (6-22); Bilirubin Total 0.8 mg/dL (0.2-1.3); Blood Urea Nitrogen 24 mg/dL (7-17); Calcium 9.5 mg/dL (8.4-10.2); Carbon Dioxide 26 mmol/L (22-32); Chloride 112 mmol/L (98-107); Estimated Glomerular Filt Rate 50 mL/min (>60); Glucose 107 mg/dL (80-110); HEMOLYSIS < 15 (0-50); Potassium 4.7 mmol/L (3.4-5.1); Sodium 145 mmol/L (137-145); Total Protein 7.5 g/dL (6.3-8.2)
[2023-10-11 13:09] LABS: TSH w/ Reflex to FT4 5.73 uIU/mL (0.47-4.68)
[2023-10-11 13:42] LABS: Free T4, Direct Thyroxine 0.81 ng/dL (0.78-2.19)
== END ==
LOC: LAB 10:51
PROVIDERS: PCP Nurse Practitioner Family; Referring Provider Psychiatry & Neurology Psychiatry; Visit Provider Psychiatry & Neurology Psychiatry
DX: F33.1 Major depressive disorder, recurrent, moderate (principal)
CPT/HCPCS: 36415; 80053; 84439; 84443; 85025